=== PATIENT | male | born 1990 | race American Indian/Alaskan Native ===

== ENCOUNTER 2020-03-13 21:20 | Emergency (ER) | payer SELFPAY ==
[2020-03-14] MEDS ORDERED: KETOROLAC 60 MG/2 ML INJ IM ONE (04:02)
[2020-03-14] MEDS ORDERED: oxyCODONE /ACETAMINOPHEN 5-325MG TAB PO ONE (04:02)
--- NOTE | 2020-03-14 04:07 | Emergency Department Report ---
ED General Adult HPI - General Chief complaint: Extremity Injury, Lower Stated complaint: RT HIP PAIN Time Seen by Provider: 03/14/20 03:55 Source: patient, EMS Mode of arrival: Ambulatory Limitations: No Limitations - History of Present Illness Initial comments: 30-year-old -German male patient presents with complaints of sudden worsening of right hip pain x today. Patient reports that he dislocated his hip and had a hip surgery that required pin placement 2 weeks ago with Sean Guidry. Patient states that he was discharged from the hospital 4 days ago, however he is unable to afford the prescription medications given to him which include tramadol, Aurora, and ibuprofen. He states that today he was much more mobile than normal and stood on his feet for an extended period of time causing his right hip to hurt. He denies any fever/chills/sweats, numbness/tingling/weakness to his right leg, difficulty moving his right leg/hip, swelling to the wound area, wound discharge, or redness to the wound. Patient states he has a follow-up with the orthopedic surgeon on March 18. - Related Data Allergies Allergy/AdvReac Type Severity Reaction Status Date / Time No Known Allergies Allergy Verified 03/13/20 23:12 ED Review of Systems ROS: Stated complaint: RT HIP PAIN Other details as noted in HPI Constitutional: denies: chills, diaphoresis, fever, malaise, weakness Respiratory: denies: shortness of breath Gastrointestinal: denies: abdominal pain, nausea, vomiting Musculoskeletal: arthralgia. denies: joint swelling Skin: denies: change in color Neurological: denies: headache, numbness Hematological/Lymphatic: denies: swollen glands ED Past Medical Hx - Past Medical History Previous Medical History?: No - Surgical History Past Surgical History?: Yes Additional Surgical History: right hip pins ED Physical Exam - General Limitations: No Limitations General appearance: alert, in no apparent distress, other (Patient still in hospital gown) - Head Head exam: Present: atraumatic, normocephalic - Eye Eye exam: Present: normal appearance - Neck Neck exam: Present: normal inspection - Respiratory Respiratory exam: Present: normal lung sounds bilaterally. Absent: respiratory distress - Cardiovascular Cardiovascular Exam: Present: regular rate, normal rhythm - Extremities Exam Extremities exam: Present: other (Approximately 12 cm healing surgical wound noted to right hip/lateral thigh; sutures are in place; no surrounding erythema, warmth, induration, or drainage noted from wound; patient has full range of motion of the hip; normal sensation and perfusion of the leg and foot noted) - Back Exam Back exam: Present: normal inspection, full ROM - Neurological Exam Neurological exam: Present: alert, oriented X3 - Psychiatric Psychiatric exam: Present: normal affect, normal mood - Skin Skin exam: Present: warm, dry, intact, normal color. Absent: rash, diaphoretic, erythema, pallor ED Course Vital Signs 03/13/20 03/14/20 23:07 04:40 Temperature 98.5 F 98.3 F Pulse Rate 102 H 82 Respiratory 18 16 Rate Blood Pressure 125/83 Blood Pressure 118/81 [Right] O2 Sat by Pulse 99 100 Oximetry ED Medical Decision Making - Medical Decision Making 30-year-old -German male patient presents with complaints of sudden worsening of right hip pain x today. Patient reports that he dislocated his hip and had a hip surgery that required pin placement 2 weeks ago with Sean Guidry. Patient states that he was discharged from the hospital 4 days ago, however he is unable to afford the prescription medications given to him which include tramadol, Aurora, and ibuprofen. He states that today he was much more mobile than normal and stood on his feet for an extended period of time causing his right hip to hurt. He denies any fever/chills/sweats, swelling to the wound area, wound discharge, or redness to the wound. Patient states he has a follow- up with the orthopedic surgeon on March 18. On exam, healing surgical wound noted without signs of infection. Patient has full range of motion of the right hip and is able to ambulate. Pain likely exacerbated due to increased physical activity today. Toradol and oxycodone given. Patient encouraged to fill his prescriptions for pain control. Recommend follow-up with orthopedic surgeon as scheduled. Discussed signs and symptoms of infection and strict return precautions in great detail with patient who verbalized understanding. He is well-appearing, vitals are normal, and stable for discharge home. Critical care attestation.: If time is entered above; I have spent that time in minutes in the direct care of this critically ill patient, excluding procedure time. ED Disposition Clinical Impression: Acute right hip pain Disposition: TO HOME OR SELFCARE Is pt being admited?: No Condition: Stable Instructions: Suture Care (ED) Additional Instructions: Please follow-up with your surgeon as scheduled March 18, 2020 Referrals: PRIMARY CARE, [Primary Care Provider] - 3-5 Days
[2020-03-14 05:05] VITALS: BP 118/81
== END 2020-03-14 04:40 | disposition home or self-care (01) ==
LOC: ED 21:20
DX: M25.551 Pain in right hip (principal)
CPT/HCPCS: 96372; 99283; J1885